=== PATIENT | female | born 1990 | race Caucasian/White ===

== ENCOUNTER → 2020-03-04 | Outpatient (CLI) | payer OTHER ==
[2016-05-20 06:41] VITALS: BP 104/57
[~2020-03-04] MED LIST: CIPRO500 M1 PO; LEADER PAIN RE500 M1 PO; MACRODANTIN50 MG/CA1 PO; NORCO 325 MG-51 TA1 PO
== END ==
LOC: LAB 13:42
DX: J02.9 Acute pharyngitis, unspecified (principal); R09.81 Nasal congestion; Z20.828 Contact with and (suspected) exposure to other viral communicable diseases